=== PATIENT | male | born 1990 | race Caucasian/White ===

== ENCOUNTER 2016-11-28 16:19 | Emergency (ER) | payer SELFPAY ==
--- NOTE | 2016-11-28 16:44 | ED Physician Documentation ---
Animal Bite - HISTORIAN Historian: patient - HPI Chief Complaint: Animal Bite Onset: just prior to arrival Where: work ([employer]) Animal: dog Appearance of Animal: appeared well Animal's Immunization Status: not immunized Observation/ Capture of Animal: animal is known, can be observed Context of Attack: "unprovoked" attack, entered animals domain Severity of Injury: bitten Location of Injury: L lower extremity Associated Symptoms: none Further Comments: yes - ROS CONST: denies: fever - PAST HX Past History: none Immunizations: denies: tetanus Allergies/Adverse Reactions: Allergies Allergy/AdvReac Type Severity Reaction Status Date / Time No Known Allergies Allergy Verified 11/28/16 16:41 Home Medications: Ambulatory Orders Medication Instructions Recorded NK [NK] 11/28/16 - SOCIAL HX Smoking History: non-smoker Alcohol Use: occasionally Drug Use: none - FAMILY HX Family History: no significant history - VITAL SIGNS Vital Signs: Vital Signs Temp Pulse Resp BP Pulse Ox 98.2 F 80 16 123/84 99 11/28/16 17:15 11/28/16 17:15 11/28/16 17:15 11/28/16 17:15 11/28/16 17:15 - REVIEWED ASSESSMENTS Nursing Assessment Reviewed: Yes Vitals Reviewed: Yes ED Results Lab/Radiology - Orders Orders: ED Orders Category Date Time Status Diph,Juliette(Acell),Tet Vac/Pf [Adacel] Med 11/28/16 16:51 Discontinued 0.5 ml IM 1T ONE Animal Bite Physical Exam - Physical Exam General Appearance: no acute distress, alert, mild distress Skin: other (patient had two minor punture wound over the left knee, cleansed with betadine and dressed. ) Neuro/Vascular/Tendon: no vascular compromise, oriented x3 Resp/CVS: chest non-tender, breath sounds nml, heart sounds nml, no resp. distress, lungs clear, reg. rate & rhythm Discharge Clincal Impression: Dog bite Qualifiers: Encounter type: initial encounter Qualified Code(s): W54.0XXA - Bitten by dog, initial encounter Referrals: Primary Doctor,No [Primary Care Provider] - 2 Days Additional Instructions: Keep wounds clean and watch for any signs of infection, redness, purulent drainage, fever or chills. Disposition: 01 HOME, SELF-CARE Decision to Admit: NO Date of Decison to Admit: 11/28/16 Decision Time: 17:12
[2016-11-28] MEDS ORDERED: DIPH,PERTUSS(ACELL),TET VAC/PF 0.5 ML DISP.SYRIN IM ONE (16:51)
[2016-11-28 17:17] VITALS: BP 123/84
== END 2016-11-28 17:15 | disposition home or self-care (01) ==
LOC: ED 16:19
DX: S80.272A Other superficial bite of left knee, initial encounter (principal); W54.0XXA Bitten by dog, initial encounter; Y93.9 Activity, unspecified; Y99.9 Unspecified external cause status
CPT/HCPCS: 90471; 90715; 99283